=== PATIENT | female | born 1965 | race American Indian/Alaskan Native ===

== ENCOUNTER 2016-09-13 07:10 | Emergency (ER) | payer MEDICARE ==
[2016-09-13 07:35] VITALS: BP 167/108
[2016-09-13] MEDS: LASIX PO SCH ×2 (08:00→11:44)
[2016-09-13] MEDS: FEOSOL PO SCH ×2 (08:00→11:44)
[2016-09-13] MEDS: FLEXERIL PO SCH ×2 (08:00→11:44)
[2016-09-13] MEDS: ROXICODONE PO SCH ×2 (08:00→14:29)
[2016-09-13] MEDS: PROzac PO SCH ×2 (08:00→11:45)
[2016-09-13] MEDS: XANAX PO SCH ×2 (08:00→14:00)
[2016-09-13] MEDS: MOTRIN PO SCH ×2 (08:00)
[2016-09-13 08:12] LABS: Basophils % (Auto) 0.9 % (0.0-1.8); Eosinophils % (Auto) 2.3 % (0.0-4.3); Hematocrit 33.9 % (30.3-42.9); Hemoglobin 11.3 gm/dl (10.1-14.3); Mean Corpuscular HGB Conc 33 % (30-34); Mean Corpuscular Hemoglobin 30 pg (28-32); Mean Corpuscular Volume 89 fl (79-97); Platelet Count 349 K/mm3 (140-440); Red Blood Count 3.83 M/mm3 (3.65-5.03); White Blood Count 4.8 K/mm3 (4.5-11.0)
[2016-09-13 08:29] LABS: Anion Gap 20 mmol/L; BUN/Creatinine Ratio 11.11; Blood Urea Nitrogen 10 mg/dL (7-17); Calcium 9.5 mg/dL (8.4-10.2); Carbon Dioxide 24 mmol/L (22-30); Glucose 108 mg/dL (65-100); Potassium 3.7 mmol/L (3.6-5.0); Sodium 141 mmol/L (137-145)
--- NOTE | 2016-09-13 09:06 | Emergency Department Report ---
ED Psych HPI - General Chief Complaint: Psych Stated Complaint: PSYCHOTIC BREAKDOWN Time Seen by Provider: 09/13/16 08:00 Source: patient Mode of arrival: Wheelchair - History of Present Illness Initial Comments: Patient is a 50-year-old female with a history of psych disorder, hypertension, GERD, anxiety who presents with the national van owner operator of the personal senior living in which she resides. The national van owner operator of the home reports that hoisting engineer has called her concerning the patient's aggressive behavior, confrontational behavior, and verbal outbursts which are disrupting the residence. As per the patient, she denies any suicidal ideation, homicidal ideations, delusions, or homicidal ideations. Patient keeps reporting "I do not belong here". Patient is given her daily medications at the personal senior living and has not missed any of her medications. Patient personal psychiatrist is Dr. Butterfield, with whom she had an appointment this morning but did not make the appointment due to ER evaluation. Otherwise no fevers, chills, headaches, nausea, vomiting, diarrhea, chest pain , shortness of breath, abdominal pain, trauma, falls, travel, or sick contacts. Given her medications here in the ER - Related Data Home Medications Medication Instructions Recorded Confirmed Last Taken ALPRAZolam [Xanax TAB] 1 mg PO QHS 09/13/16 09/13/16 09/12/16 Cyclobenzaprine [Flexeril] 10 mg PO QAM 09/13/16 09/13/16 09/12/16 FLUoxetine HCL [FLUoxetine] 20 mg PO QDAY 09/13/16 09/13/16 09/12/16 Ferrous Sulfate [Feosol] 325 mg PO QDAY 09/13/16 09/13/16 09/12/16 Furosemide [Lasix TAB] 40 mg PO QDAY 09/13/16 09/13/16 09/12/16 Ibuprofen [Motrin] 800 mg PO BID 09/13/16 09/13/16 09/12/16 Oxycodone HCl [oxyCODONE TAB] 10 mg PO TID 09/13/16 09/13/16 09/12/16 Allergies Allergy/AdvReac Type Severity Reaction Status Date / Time No Known Allergies Allergy Verified 09/13/14 01:41 ED Review of Systems ROS: Stated complaint: PSYCHOTIC BREAKDOWN Other details as noted in HPI Comment: All other systems reviewed and negative ED Past Medical Hx - Past Medical History Hx Hypertension: Yes Hx GERD: Yes Hx Sickle Cell Disease: No Hx Psychiatric Treatment: Yes (Schizoprenia and depression) Hx Asthma: Yes Hx Dementia: No Hx HIV: No Additional medical history: Chronic pain. Neck herniated disc - Surgical History Additional Surgical History: partial hysterectomy - Social History Smoking Status: Never Smoker Substance Use Type: None - Medications Home Medications: Home Medications Medication Instructions Recorded Confirmed Last Taken Type ALPRAZolam [Xanax TAB] 1 mg PO QHS 09/13/16 09/13/16 09/12/16 History Cyclobenzaprine [Flexeril] 10 mg PO QAM 09/13/16 09/13/16 09/12/16 History FLUoxetine HCL [FLUoxetine] 20 mg PO QDAY 09/13/16 09/13/16 09/12/16 History Ferrous Sulfate [Feosol] 325 mg PO QDAY 09/13/16 09/13/16 09/12/16 History Furosemide [Lasix TAB] 40 mg PO QDAY 09/13/16 09/13/16 09/12/16 History Ibuprofen [Motrin] 800 mg PO BID 09/13/16 09/13/16 09/12/16 History Oxycodone HCl [oxyCODONE TAB] 10 mg PO TID 09/13/16 09/13/16 09/12/16 History ED Physical Exam - General Limitations: No Limitations General appearance: alert, in no apparent distress - Head Head exam: Present: atraumatic, normocephalic - Eye Eye exam: Present: normal appearance - ENT ENT exam: Present: mucous membranes moist - Neck Neck exam: Present: normal inspection - Respiratory Respiratory exam: Present: normal lung sounds bilaterally. Absent: respiratory distress - Cardiovascular Cardiovascular Exam: Present: regular rate, normal rhythm. Absent: systolic murmur, diastolic murmur, rubs, gallop - GI/Abdominal GI/Abdominal exam: Present: soft, normal bowel sounds - Extremities Exam Extremities exam: Present: normal inspection - Back Exam Back exam: Present: normal inspection - Neurological Exam Neurological exam: Present: alert, oriented X3 - Psychiatric Psychiatric exam: Present: agitated, anxious, other (patient appears very emotional, defensive, agitated) - Skin Skin exam: Present: warm, dry, intact, normal color. Absent: rash ED Course Vital Signs 09/13/16 07:28 Temperature 99.0 F Pulse Rate 88 Respiratory 20 Rate Blood Pressure 167/108 O2 Sat by Pulse 100 Oximetry ED Medical Decision Making - Lab Data Result diagrams: 09/13/16 07:50 09/13/16 07:50 - Medical Decision Making Pt made 1013 after initial evaluation Psych consult appreciated Pt to remain a 1013 and to be transferred to an inpatient psych facility Critical care attestation.: If time is entered above; I have spent that time in minutes in the direct care of this critically ill patient, excluding procedure time. ED Disposition Clinical Impression: Schizophrenia, Aggression Disposition: DC/TX PSY HOSP/PSY UNIT Is pt being admited?: No Condition: Stable Referrals: NURIS BUTTERFIELD MD [Primary Care Provider] - 3-5 Days
[2016-09-13] MEDS ORDERED: XANAX PO ONE (11:40)
[2016-09-13 12:00] LABS: Urine Drugs of Abuse Note Disclamer
[2016-09-13 12:11] LABS: Bacteria,Urine 1+ /HPF (Negative); Bilirubin,Urine NEG (Negative); Blood,Urine NEG (Negative); Ketones,Urine NEG (Negative); Leukocyte Esterase,Urine MOD (Negative); Mucus,Urine FEW /HPF; Nitrite,Urine NEG (Negative); Protein,Urine <15 mg/dL mg/dL (Negative); Urobilinogen,Urine < 2.0 mg/dL (<2.0)
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
== END 2016-09-13 19:04 ==
LOC: ED 07:10
DX: F20.9 Schizophrenia, unspecified (principal); F91.9 Conduct disorder, unspecified; I10 Essential (primary) hypertension; K21.9 Gastro-esophageal reflux disease without esophagitis; F32.9 Major depressive disorder, single episode, unspecified; J45.909 Unspecified asthma, uncomplicated; G89.29 Other chronic pain; Z90.710 Acquired absence of both cervix and uterus
CPT/HCPCS: 36415; 80048; 80307; 81001; 85025; 99285; G0480; 80320

== ENCOUNTER 2018-11-17 23:49 | Emergency (ER) | payer MEDICARE, OTHER ==
--- NOTE | 2018-11-18 01:22 | Emergency Department Report ---
ED General Adult HPI - General Chief complaint: Dyspnea/Respdistress Stated complaint: HYPERTENSION Time Seen by Provider: 11/18/18 01:13 Source: patient Mode of arrival: Wheelchair Limitations: No Limitations - History of Present Illness Initial comments: Patient is 53 years old female with stage IV history of pancreatic cancer, hypertension and schizophrenia. Patient presented to the ER stating that she had an anxiety attack. She stated that this is similar to her episodes that she had before several times. Patient stated the symptoms completely resolved now and want to go home. Patient stated that she is dealing with a lot of stress secondary to her medical illness but she denied any suicidal ideation. - Related Data Home Medications Medication Instructions Recorded Confirmed Last Taken ALPRAZolam [Xanax TAB] 1 mg PO QHS 09/13/16 09/13/16 09/12/16 Cyclobenzaprine [Flexeril] 10 mg PO QAM 09/13/16 09/13/16 09/12/16 FLUoxetine HCL [FLUoxetine] 20 mg PO QDAY 09/13/16 09/13/16 09/12/16 Ferrous Sulfate [Feosol] 325 mg PO QDAY 09/13/16 09/13/16 09/12/16 Furosemide [Lasix TAB] 40 mg PO QDAY 09/13/16 09/13/16 09/12/16 Ibuprofen [Motrin] 800 mg PO BID 09/13/16 09/13/16 09/12/16 Oxycodone HCl [oxyCODONE TAB] 10 mg PO TID 09/13/16 09/13/16 09/12/16 Allergies Allergy/AdvReac Type Severity Reaction Status Date / Time No Known Allergies Allergy Verified 09/13/14 01:41 ED Review of Systems ROS: Stated complaint: HYPERTENSION Other details as noted in HPI Comment: All other systems reviewed and negative Constitutional: denies: chills, fever Respiratory: shortness of breath (resolved). denies: cough Cardiovascular: palpitations. denies: chest pain Gastrointestinal: denies: abdominal pain, nausea Neurological: denies: headache ED Past Medical Hx - Past Medical History Previous Medical History?: Yes Hx Hypertension: Yes Hx GERD: Yes Hx of Cancer: Yes (pancreatic stage 4) Hx Sickle Cell Disease: No Hx Psychiatric Treatment: Yes (Schizoprenia and depression) Hx Asthma: Yes Hx Dementia: No Hx HIV: No Additional medical history: Chronic pain. Neck herniated disc - Surgical History Past Surgical History?: Yes Additional Surgical History: partial hysterectomy, back sx, whipple surgery - Social History Smoking Status: Never Smoker - Medications Home Medications: Home Medications Medication Instructions Recorded Confirmed Last Taken Type ALPRAZolam [Xanax TAB] 1 mg PO QHS 09/13/16 09/13/16 09/12/16 History Cyclobenzaprine [Flexeril] 10 mg PO QAM 09/13/16 09/13/16 09/12/16 History FLUoxetine HCL [FLUoxetine] 20 mg PO QDAY 09/13/16 09/13/16 09/12/16 History Ferrous Sulfate [Feosol] 325 mg PO QDAY 09/13/16 09/13/16 09/12/16 History Furosemide [Lasix TAB] 40 mg PO QDAY 09/13/16 09/13/16 09/12/16 History Ibuprofen [Motrin] 800 mg PO BID 09/13/16 09/13/16 09/12/16 History Oxycodone HCl [oxyCODONE TAB] 10 mg PO TID 09/13/16 09/13/16 09/12/16 History ED Physical Exam - General Limitations: No Limitations General appearance: alert, in no apparent distress - Head Head exam: Present: atraumatic, normocephalic, normal inspection - Eye Eye exam: Present: normal appearance - ENT ENT exam: Present: normal exam, normal orophraynx, mucous membranes moist - Neck Neck exam: Present: normal inspection, full ROM. Absent: tenderness, meningismus, lymphadenopathy, thyromegaly - Respiratory Respiratory exam: Present: normal lung sounds bilaterally - Cardiovascular Cardiovascular Exam: Present: normal heart sounds - GI/Abdominal GI/Abdominal exam: Present: soft, normal bowel sounds. Absent: distended, tenderness, guarding, rebound, rigid - Back Exam Back exam: Present: normal inspection, full ROM. Absent: CVA tenderness (R), CVA tenderness (L) - Neurological Exam Neurological exam: Present: alert, oriented X3, CN II-XII intact, normal gait - Psychiatric Psychiatric exam: Present: normal mood, anxious - Skin Skin exam: Present: warm, intact, normal color ED Course Vital Signs 11/18/18 00:01 Temperature 98 F Pulse Rate 86 Respiratory 18 Rate Blood Pressure 195/102 O2 Sat by Pulse 100 Oximetry ED Medical Decision Making - Medical Decision Making Patient is 53 years old female with stage IV history of pancreatic cancer, hypertension and schizophrenia. Patient presented to the ER stating that she had an anxiety attack. She stated that this is similar to her episodes that she had before several times. Patient stated the symptoms completely resolved now and want to go home. Patient stated that she is dealing with a lot of stress secondary to her medical illness but she denied any suicidal ideation. Patient advised to follow-up with her primary care physician in the next 2-3 days and to return to the ER if her symptoms are not improved. Critical care attestation.: If time is entered above; I have spent that time in minutes in the direct care of this critically ill patient, excluding procedure time. ED Disposition Clinical Impression: Anxiety disorder due to general medical condition with panic attack Disposition: DC-01 TO HOME OR SELFCARE Is pt being admited?: No Condition: Stable Instructions: Anxiety (ED) Referrals: PRIMARY CARE, [Referring] - 3-5 Days
[2018-11-18 01:24] LABS: Basophils # (Auto) 0.1 K/mm3 (0.0-0.1); Basophils % (Auto) 1.3 % (0.0-1.8); Eosinophils # (Auto) 0.3 K/mm3 (0.0-0.4); Eosinophils % (Auto) 4.4 % (0.0-4.3); Hemoglobin 10.6 gm/dl (10.1-14.3); Lymphocytes # (Auto) 1.8 K/mm3 (1.2-5.4); Lymphocytes % (Auto) 27.1 % (13.4-35.0); Mean Corpuscular HGB Conc 33 % (30-34); Mean Corpuscular Volume 89 fl (79-97); Monocytes # (Auto) 0.5 K/mm3 (0.0-0.8); Monocytes % (Auto) 7.4 % (0.0-7.3); Platelet Count 294 K/mm3 (140-440); Red Cell Distribution Width 15.3 % (13.2-15.2)
[2018-11-18 01:26] VITALS: BP 170/95
[2018-11-18] MEDS ORDERED: CATAPRES PO ONE (01:26)
[2018-11-18] MEDS ORDERED: CATAPRES ONE (01:30)
[2018-11-18 01:53] LABS: Alanine Aminotransferase 28 units/L (7-56); Albumin 3.4 g/dL (3.9-5); BUN/Creatinine Ratio 14; Blood Urea Nitrogen 10 mg/dL (7-17); Calcium 8.9 mg/dL (8.4-10.2); Hemolysis Index 6
[2018-11-18] MEDS ORDERED: K-DUR PO ONE (02:19)
== END 2018-11-18 05:00 | disposition home or self-care (01) ==
LOC: ED 23:49
DX: F41.0 Panic disorder [episodic paroxysmal anxiety] (principal); I10 Essential (primary) hypertension; K21.0 Gastro-esophageal reflux disease with esophagitis; C25.9 Malignant neoplasm of pancreas, unspecified; F32.9 Major depressive disorder, single episode, unspecified; F20.9 Schizophrenia, unspecified; J45.909 Unspecified asthma, uncomplicated; G89.29 Other chronic pain; Z90.710 Acquired absence of both cervix and uterus; Z98.890 Other specified postprocedural states; Z79.899 Other long term (current) drug therapy
CPT/HCPCS: 36415; 80053; 83690; 83880; 84484; 85025; 93005; 93010; 99283